=== PATIENT | male | born 1950 | race Caucasian/White ===

== ENCOUNTER 2016-11-03 00:39 | Day surgery (SDC) | payer MEDICARE, OTHER ==
[2016-11-03] VITALS (11 sets, daily range): BP systolic 106–129; BP diastolic 64–76; PULSE 51–63; RESP 13–21; O2SAT 93–98
[~2016-11-03] VITALS: Ht 182.9 cm; Wt 81.0 kg
[~2016-11-03 00:39] MED LIST: ASPI325T32 PO; CARV25TA2 PO; LIP40 PO; LOSA100T29 PO; OMEP20TA24 PO; SPIR25TA3 PO; [UNRECOGNIZED DRUG - CODE] PO
[2016-11-03] MEDS ORDERED: 0.9% Sodium Chloride 1,000 ML IV SCH (08:00)
[2016-11-03 08:20] LABS: BASOPHILS % (AUTO) 0.4 % (0-3); EOSINOPHILS % (AUTO) 4.3 % (0-5); MONOCYTES % (AUTO) 10.6 % (4-12); Mean Corpuscular Hemoglobin 29.9 pg (27.0-35.0); Mean Corpuscular Volume 89.1 fL (81-100); NEUTROPHILS % (AUTO) 62.7 % (40-74); Platelet Count 143 bil/L (150-400)
[2016-11-03 08:34] LABS: INR 0.98 ratio
[2016-11-03] MEDS ORDERED: Heparin 10,000 Unit/1,000 mL NS Premix IV ONE (09:24)
[2016-11-03] MEDS ORDERED: Heparin 1,000 Units/500 mL NS Premix IV ONE (09:24)
[2016-11-03] MEDS ORDERED: fentaNYL-PF 50 mCg/mL 2 mL Inj ONE (09:25)
[2016-11-03] MEDS ORDERED: Heparin 1,000 Unit/mL 10 mL Inj ONE (09:25)
[2016-11-03] MEDS ORDERED: Nitroglycerin 50,000 mcg/250 mL D5W Premix IV ONE (10:17)
--- NOTE | 2016-11-03 11:03 | NUR ---
Received Received from poultry farm laborer about 1054. VSS. Denies pain. Tele SB. Right groin without bleeding or hematoma. at bedside. Report given to Cally ISRAEL.
[2016-11-03] MEDS ORDERED: UBID100C25 PO (13:44)
[2016-11-03] MEDS ORDERED: CHOL500051 PO (13:44)
[2016-11-03] MEDS ORDERED: ASCO100089 PO (13:44)
--- NOTE | 2016-11-03 14:57 | NUR ---
Discharge Pt discharged to home with after stable recovery from diagnostic heart cath, VSS and WNL on RA, groin site soft non tender. Pt and stated verbal understanding of discharge instructions regarding use of home medications, signs of worsening condition and follow up appointments. Pt left with personal belongings, discharge paperwork, IV dc'd at approximately 1430. Pt and stated verbal understanding of preop instructions regarding prep for upcoming heart cath on monday 11/06.
--- NOTE | 2016-11-03 22:26 | CS94 ---
[address] [address] DIAGNOSTIC CARDIAC CATHETERIZATION PATIENT: PRESTON LOW : 1950 MR#: [id number] ADMIT: 11/03/2016 JOB ID: [id number] SERVICE DATE: 11/03/2016 CHIEF COMPLAINT: Abnormal stress test with dyspnea on exertion. PROCEDURES PERFORMED: 1. Left heart catheterization. 2. Selective coronary angiograms. 3. Right common femoral artery vascular access under ultrasound guidance. 4. Closure device via Perclose. METHOD: Following informed consent, patient was prepped and draped in usual sterile fashion. A 6-Gren[place] sheath was placed in the right common femoral artery. Sheath placement was confirmed via femoral angiogram. JL4 was used to engage left main. Right coronary artery engagement was difficult. I tried JR4 and it was unsuccessful. I tried 3D RC, AR Mod and these catheters were also unsuccessful. The vas catheter was AL1 but even that did not give me a selective engagement. The left ventricle was accessed via a JR4 catheter. End-diastolic pressure was recorded. The catheter was withdrawn into the aorta under continuous hemodynamic monitoring. There were no complications immediately postprocedure. CONTRAST USED: 130 cc. ESTIMATED BLOOD LOSS: 10 cc. FINDINGS: The right common femoral artery gives rise to SFA and profunda. The sheath enters the right common femoral artery at the lower third of the femoral head. There is no evidence of contrast extravasation or dissection. Coronary angiograms: Left main is a short vessel. It gives rise to LAD and the circumflex. Excellent blow back and no dampening on engagement. Left anterior descending demonstrates previously deployed stent with the stent inside of it due to previously noted in-stent restenosis. The distal portion of the stent appears to have intermediate disease. The LAD is a small caliber vessel and is diffusely diseased. The LAD gives rise to a medium-sized first diagonal branch, as well as multiple septal perforators. The disease distal to the previously deployed stent is located at the bifurcation of the first diagonal. It is best appreciated on [place] cranial view. The circumflex is a dominant vessel. It gives rise to a very small first obtuse marginal branch, a large bifurcating second obtuse marginal branch, a large bifurcating third obtuse marginal branch, a large fourth obtuse marginal branch and a large fifth obtuse marginal branch, which functions as a PDA. There is a 50% stenosis between the first and second obtuse marginal branches. There is 80% stenosis in the inferior limb of the large obtuse marginal branch. Right coronary artery is a diminutive nondominant vessel which gives rise to conus, RV branch. No obstructive lesions are identified. IMPRESSION: 1. 50% distal shoulder of the previously deployed stent in the mid left anterior descending stenosis with diffusely diseased left anterior descending distal to that lesion. 2. 50% proximal circumflex lesion at the alf point between the first obtuse marginal and second obtuse marginal branch. 3. 80% lesion in the inferior limb of the second obtuse marginal branch. PLAN: FFR of the LAD followed by intervention of the circumflex. Case is tentatively scheduled with on November 06. Thank you very much for the opportunity to evaluate this patient.
== END 2016-11-03 23:59 | disposition home or self-care (01) ==
LOC: SOUO 00:39
PROVIDERS: ATTEND Internal Medicine
DX: I25.10 Atherosclerotic heart disease of native coronary artery without angina pectoris (principal); T82.855A Stenosis of coronary artery stent, initial encounter; Y84.8 Other medical procedures as the cause of abnormal reaction of the patient, or of later complication, without mention of misadventure at the time of the procedure; I42.9 Cardiomyopathy, unspecified; I10 Essential (primary) hypertension; G47.33 Obstructive sleep apnea (adult) (pediatric); I25.2 Old myocardial infarction; I25.5 Ischemic cardiomyopathy; E78.5 Hyperlipidemia, unspecified; N40.0 Benign prostatic hyperplasia without lower urinary tract symptoms; Z79.82 Long term (current) use of aspirin
CPT/HCPCS: 36415; 80048; 85025; 85610; 93005; 93458; 99152; 99153; C1760; C1769; J1200; J1644; J2060; J2250; J3010; J7030; Q9967

== ENCOUNTER 2016-11-06 00:15 | Day surgery (SDC) | payer MEDICARE, OTHER ==
[2016-11-06] VITALS (14 sets, daily range): BP systolic 108–132; BP diastolic 64–75; PULSE 50–64; RESP 11–18; O2SAT 93–98
[~2016-11-06] VITALS: Ht 182.9 cm; Wt 80.9 kg
[~2016-11-06 00:15] MED LIST changes: +ASCO100089 PO; +CHOL500051 PO; +UBID100C25 PO
[2016-11-06] MEDS ORDERED: FURO40TA4 PO (13:42)
[2016-11-06] MEDS ORDERED: Heparin 10,000 Unit/1,000 mL NS Premix IV ONE ×2 (13:48→14:55)
[2016-11-06] MEDS ORDERED: Heparin 1,000 Units/500 mL NS Premix IV ONE (13:48)
[2016-11-06] MEDS ORDERED: Heparin 1,000 Unit/mL 10 mL Inj ONE (13:49)
[2016-11-06] MEDS ORDERED: Nitroglycerin 50,000 mcg/250 mL D5W Premix IV ONE (13:49)
--- NOTE | 2016-11-06 13:51 | NUR ---
Admit [facility] Admitted to [facility] 7 about 1330. VSS. Denies pain. IVs started. See EMR for further info and assessment. Procedure and recovery reviewed, pt. was here for same on Sunday. Awaiting label tacker.
[2016-11-06] MEDS ORDERED: 0.9% Sodium Chloride 250 ML ONE (14:13)
[2016-11-06] MEDS ORDERED: Adenosine 3 mg/mL 2 mL Inj ONE (14:13)
[2016-11-06] MEDS ORDERED: fentaNYL-PF 50 mCg/mL 2 mL Inj ONE (14:13)
[2016-11-06] MEDS ORDERED: Atropine 1 mg/10 mL (Code) Syringe ONE (14:35)
[2016-11-06] MEDS ORDERED: 0.9% Sodium Chloride 1,000 ML IV SCH (14:40)
--- NOTE | 2016-11-06 16:47 | NUR ---
Received Pt. taken to construction craft laborer just after 1400 and returned at 1540. VSS. Denies pain. Tele SB. Right groin without bleeding or hematoma. Peripheral pulses palp. IVF infusing per order. Continue to monitor per orders.
--- NOTE | 2016-11-06 19:43 | NUR ---
Transfer Assessment unchanged. Tolerating po. Voided per urinal. Report called to Chandni Cary RN about 1924. Transported to 2025 via bed with all belongings in no distress. at bedside. Bedside check done.
[2016-11-06] MEDS ORDERED: 0.9% Sodium Chloride 250 ML BOLUS IV PRN (20:00)
[2016-11-06] MEDS ORDERED: Ondansetron 2 mg/mL 2 mL Inj IVPUSH PRN (20:00)
[2016-11-06] MEDS ORDERED: 0.9% Sodium Chloride 400 ML (4 HRS) IV ONE (20:00)
--- NOTE | 2016-11-06 22:04 | DI95 ---
[address] [address] INTERVENTIONAL CARDIAC CATHETERIZATION PATIENT: PRESTON LOW : 1950 MR#: [id number] ADMIT: 11/06/2016 JOB ID: [id number] DATE OF SERVICE: 11/06/2016 PROCEDURE: 1. Plain balloon angioplasty of the circumflex. 2. Fractional flow reserve of the left anterior descending. INDICATION: Chest pain. PROCEDURAL DETAILS: The reader and the coders are referred to the procedure log. Briefly, we started the case with a 6-Libyan system using a Voda 3.5 guide. Subsequently this had to be changed to a CLS 7-Libyan 3.5 guide. The patient has a short left main and the circumflex takes off at an acute angle, so there was a bit of a difficulty in finding a guide that sat into the ostium, yet provided support and allowed the wires to go into the circumflex. Otherwise, the guide tended to deep seat into the LAD. ANGIOGRAPHIC FINDINGS: The circumflex in its proximal part has a 50% lesion, and this is the region where there is a takeoff of a moderate caliber obtuse marginal branch. This obtuse marginal branch has an ostial 80% and a mid segment 80% lesion. It is a 2 mm vessel. The LAD is calcified and in its mid segment at the trifurcation of two small diagonals, there appears to be a lesion which angiographically seems to be 60% to 70%. INTERVENTIONAL PROCEDURE: We initially took a Run-through wire and placed it into the first major obtuse marginal branch. Balloon angioplasty was then done with a 2.0 balloon. We got good results with about a 30% residual. We tried to stent this vessel, however, because of the acute takeoff between the left main and the circumflex, our stent would not travel. We then used a mich wire with a balanced heavy weight and a Whisper Extra-Support wire. The balanced heavy weight was placed in the first obtuse marginal branch. The ongoing circumflex received a Whisper Extra Support. The initial Run-through wire was placed in the LAD to protect the LAD as well. Despite two extra support wires, the stent would not make that acute turn and at that point we decided to not pursue stenting the obtuse marginal branch, especially because the OM also has an ostial lesion and I did not want to balloon the ostial lesion and not have the ability to stent it if needed, thereby jeopardizing the whole circumflex. In addition, I suspect that there is a strut from prior LAD stent that may be protruding into the ostium of the LAD, thereby making it difficult tho deliver a stent into the LCx, In order to evaluate the mid LAD, an FFR wire was placed in the LAD. The FFR was 0.85 thereby indicating that it can be deferred for now. In summary, this gentleman has calcific disease in his proximal circumflex as well as in his LAD. The mid-LAD lesion is borderline, he has mild disease in his left main as well. For now, I would recommend aggressive medical therapy. Should his disease progress, he might be a suitable candidate for bypass surgery. STEFANY
[2016-11-07 03:29] VITALS: BP 113/67; PULSE 61; RESP 18; O2SAT 93
--- NOTE | 2016-11-07 06:43 | NUR ---
S/P Heart Cath No c/o chest pain, Tele SB-SR with HR mostly in the 50s. Right groin site dressing CDI, no hematoma or active signs of bleeding. Groin site mildly tender with palpation. Pedal pulses are palpable. VS stable and afebrile. No c/o SOB, RA sats 93-94% all night, no s/sx of respiratory distress. Up with SBA to BR, gait steady.
[2016-11-07] MEDS ORDERED: Omega-3 Fatty Acids 1,000 mg Capsule PO SCH (08:30)
[2016-11-07] MEDS ORDERED: Ascorbic Acid 500 mg Tablet PO SCH (08:30)
[2016-11-07 09:15] VITALS: BP 116/63; PULSE 50; RESP 14; O2SAT 96
[2016-11-07 11:28] VITALS: PULSE 71
[2016-11-07 11:50] VITALS: BP 125/74; PULSE 55; RESP 20; O2SAT 95
--- NOTE | 2016-11-07 12:29 | PCM.DICHF ---
CHF Discharge Instructions Date of Service: Nov 07, 2016 Dates of Hospitalization Date of Hospital Admission 11/06/2016 Date of Discharge: Nov 07, 2016 Providers Admitting Physician: Primary Care Physician: Junie Dinero PA-C Attending Physician: Sourav Sutton MD Diagnosis at Time of Discharge Diagnosis at time of discharge CAD, Plain balloon angioplasty of the circumflex artery (11/06/2016) Problems: Labs Ejection Fraction Laboratory Tests Test Range/Units 11/07/16 09:26 Sodium Level 134-144 mEq/L 138 Potassium Level 3.5-5.2 mEq/L 4.0 Chloride Level 97-108 mEq/L 101 Carbon Dioxide Level 18-29 mmol/L 25 Blood Urea Nitrogen 8-27 mg/dL 11 Creatinine 0.76-1.27 mg/dL 0.95 Estimat Glomerular Filtration Rate >59 mL/min 84 Glucose Level 60-99 mg/dL 156 Calcium Level 8.5-10.1 mg/dL 9.6 Discharge Medications Other Medication Instructions You have received instructions on the medications your physician has prescribed at discharge. A list of these medications has been provided to you. Keep this and a list of all current medications with you. Keep the dates when you received the Flu and Pneumococcal (Pneumonia) Vaccines. Last known date of receiving Flu Vaccine fall 2015 Last known date of receiving Pneumococcal (Pneumonia) Vaccine Diet Diet Instructions CHF Low Salt diet ( 2 grams or less sodium/day) Choose foods and drinks with low or no salt. Remove salt shaker from the table. Read Nutritional Facts labels. Weight Monitoring 1. Weigh yourself every day at the same time and write it down. 2. Take your weight log to your doctor visits. 3. Call your doctor if you gain 3-5 pounds over 2-3 days. 4. Your weight today is 178.35 lbs. Additional Instructions Smoking--Tobacco Use If you smoke, you are strongly encouraged to stop. If you have recently quit smoking, CONGRATULATIONS. For further information to stop smoking or to remain smoke-free, Report or call your Doctor REPORT TO YOUR DOCTOR OR SEEK MEDICAL ATTENTION: *Shortness of breath or have more difficulty breathing. *Swelling of your feet, ankles, hands or abdomen. *Feeling tired with normal activity or experiencing dizziness or fainting. *Trouble sleeping or waking up feeling short of breath or coughing. *Chest pain or pressure. *Weight gain of 3-5 pounds over 2-3 days. *Inability to take medications or follow treatment plan Heart Attach warning signs HEART ATTACK WARNING SIGNS * Chest discomfort. *Discomfort or pain in one or both arms, back, neck, jaw or stomach. *Shortness of breath. *Breaking out in a cold sweat, nausea, or lightheadedness. If you're having heart attack warning signs: CALL . DON'T WAIT MORE THAN A FEW MINUTES - 5 MINUTES AT MOST - TO CALL . Chandan Chand PA-C Nov 07, 2016 12:29
--- NOTE | 2016-11-07 12:42 | PCM.DIMED ---
Discharge Instructions Date of Service Nov 07, 2016 Dates of Hospitalization 11/06/2016 Discharge Diagnosis Discharge Diagnosis CAD, Plain balloon angioplasty of the circumflex artery (11/06/2016) Medication Instructions Additional med instructions Please take all medications as prescribed. Please make sure that you take Clopidogrel (Plavix) 75 mg one tablet every day for one month. It is very important that you take this pill every day. If you have any questions, Please call cardiology office. Thank you Diet Discharge Diet: Low fat, Low Sodium, Heart Healthy Activity Discharge Activity: Other (please see below) Call your provider Call your provider for: Shortness of breath, Bleeding, Chest pain Patient Instructions Patient Instructions Do not drive a car for couple of days; you can shower starting from today; please do not soak in bath tub for one week; no heavy lifting, no more than 7- 10 pounds for 1 week; otherwise you can be physically active as tolerated Follow-up plan Check BMP in one week Provider: Iliana Mejia MD Follow-up in: 3 weeks Chandan Chand PA-C Nov 07, 2016 12:42
[2016-11-07] MEDS ORDERED: CLOP75TA28 PO (13:11)
--- NOTE | 2016-11-07 13:15 | PCM.DC.CAR ---
Discharge Summary Date of Service Nov 07, 2016 Date of Hospital Admission 11/06/2016 Date of Discharge: Nov 07, 2016 Providers: Admitting Physician: Primary Care Physician: Junie Dinero PA-C Attending Physician: Sourav Sutton MD Diagnosis at Time of Discharge CAD, s/p plain balloon angioplasty of the circumflex artery (11/06/2016), ischemic cardiomyopathy Problems: Brief History and Physical: This is a very pleasant 66 y/o gentleman with h/o CAD, s/p IN and PCIs in the past, ischemic cardiomyopathy with LV EF about 35% with mild MR, who recently had abnormal stress ECHO. The patient had elective cardiac cath done on 2016 Hospital Course: Coronary angiography showed that the patient had calcific disease in his proximal circumflex as well as in his LAD. The mid-LAD lesion was borderline, he had mild disease in his left main as well. The patient had plain balloon angioplasty of the circumflex. Dr. Sutton, who did the procedure, recommended aggressive medical therapy and also noted that should his disease progress, he might be a suitable candidate for bypass surgery. The patient tolerated procedure well. He ambulates freely. Denies having any chest discomfort or BECKER, does not have symptoms of nocturnal pulmonary congestion, denies having palpitations, or dizziness/lightheadedness. His right groin area (access site) is nontender with palpation, no bleeding, no hematoma, and no bruits with auscultation. BP controlled. He has normal kidney function and electrolytes. Per telemetry- sinus rhythm in 50s-60s bpm. I explained to the patient that he needs to take Plavix daily for one month per Dr. Diaz recommendation. Medications on discharge are below. Physical Exam before discharge: General: No active distress EENT: Mucous membranes moist, sclerae anicteric Neck: Supple, no thyromegaly Pulmo: Normal breathing sounds bilaterally, no crackles, no wheezing Cardio: RRR, no murmur appreciated, JVP is not elevated Abdomen: Nontender with palpation Vascular: No carotid bruits, peripheral pulses preserved Neuro: A&Ox3, no gross abnormalities Discharge Medications Ascorbic Acid (Vitamin C) 1,000 Mg Tab.chew 1,000 MG PO DAILY Aspirin (Aspirin) 325 Mg Tablet 325 MG PO DAILY Atorvastatin (Lipitor) 40 Mg Tablet 40 MG PO DAILY Carvedilol (Carvedilol) 25 Mg Tablet 25 MG PO BID Cholecalciferol (Vitamin D3) (Vitamin D) 5,000 Unit Capsule 5,000 UNIT PO DAILY Clopidogrel (Clopidogrel) 75 Mg Tablet 75 MG PO DAILY Furosemide (Furosemide) 40 Mg Tablet 40 MG PO DAILY Losartan Potassium (Losartan Potassium) 100 Mg Tablet 100 MG PO DAILY [place]-3/Dha/Epa/Fish Oil (Fish Oil 1,000 mg Softgel) 1,000 Mg (120 Mg-180 Mg) Capsule 1,000 MG PO DAILY Spironolactone (Spironolactone) 25 Mg Tablet 12.5 MG PO DAILY Ubidecarenone (Co Q-10) 100 Mg Capsule 100 MG PO DAILY Additional med instructions Please take all medications as prescribed. Please make sure that you take Clopidogrel (Plavix) 75 mg one tablet every day for one month. It is very important that you take this pill every day. If you have any questions, Please call cardiology office. Thank you Followup Plan Follow-up plan Check BMP in one week Discharge Activity: Other (please see below) Patient Instructions Do not drive a car for couple of days; you can shower starting from today; please do not soak in bath tub for one week; no heavy lifting, no more than 7- 10 pounds for 1 week; otherwise you can be physically active as tolerated Chandan Chand PA-C Nov 07, 2016 13:15
--- NOTE | 2016-11-07 13:39 | NUR ---
Discharge Patient denies pain/discomfort. A&Ox3. Groin site soft, non tender, no bruising or erythema noted. No s/sx bleeding. VSS. Discharge instructions and patient teaching on plavix printed and reviewed verbally with patient and his . IV's DC'd intact. Patient ambulated off unit with all personal belongings, accompanied by his and discharged home via personal vehicle.
== END 2016-11-07 13:30 | disposition home or self-care (01) ==
LOC: SOUO 00:15 → PCC 19:22 → SOUO 11-07 13:30
PROVIDERS: ATTEND Internal Medicine Cardiovascular Disease
DX: I25.10 Atherosclerotic heart disease of native coronary artery without angina pectoris (principal); I10 Essential (primary) hypertension; Z95.5 Presence of coronary angioplasty implant and graft; E78.5 Hyperlipidemia, unspecified; Z79.82 Long term (current) use of aspirin; I25.2 Old myocardial infarction; G47.33 Obstructive sleep apnea (adult) (pediatric); N40.1 Benign prostatic hyperplasia with lower urinary tract symptoms; G47.00 Insomnia, unspecified; I25.5 Ischemic cardiomyopathy
CPT/HCPCS: 36415; 80048; 92920; 93005; 93571; 99152; 99153; C1725; C1760; C1769; C1874; C1887; J0153; J1200; J1644; J2060; J2250; J3010; J7050; Q9967

== ENCOUNTER 2017-02-13 00:10 | Day surgery (SDC) | payer MEDICARE, OTHER ==
[~2017-02-13] VITALS: Ht 188 cm; Wt 82.5 kg
[2017-02-13] VITALS (14 sets, daily range): BP systolic 109–131; BP diastolic 62–79; PULSE 47–63; RESP 11–18; O2SAT 92–98
[~2017-02-13 00:10] MED LIST changes: -CHOL500051 PO; +CLOP75TA28 PO; +FURO40TA4 PO; -OMEP20TA24 PO; -UBID100C25 PO
[2017-02-13 11:19] LABS: BASOPHILS % (AUTO) 0.3 % (0-3); EOSINOPHILS % (AUTO) 5.5 % (0-5); MONOCYTES % (AUTO) 9.8 % (4-12); Mean Corpuscular Hemoglobin 29.9 pg (27.0-35.0); Mean Corpuscular Volume 86.7 fL (81-100); NEUTROPHILS % (AUTO) 57.9 % (40-74); Platelet Count 131 bil/L (150-400)
[2017-02-13] MEDS ORDERED: CHOL500051 PO (11:27)
--- NOTE | 2017-02-13 11:30 | NUR ---
Admitted for an ICD for a low EF of 30 - DX with cardiomyopathy. Pt and understand plan of care.
[2017-02-13] MEDS ORDERED: Vancomycin 1,000mg/200 mL NS IV ONE (11:57)
[2017-02-13] MEDS ORDERED: Bupivacaine-MPF 0.5% 30 mL Inj ONE (11:59)
[2017-02-13] MEDS ORDERED: 0.9% Sodium Chloride 250 ML ONE (11:59)
[2017-02-13] MEDS ORDERED: Heparin 10,000 Unit/1,000 mL NS Premix IV ONE (11:59)
[2017-02-13] MEDS ORDERED: fentaNYL-PF 50 mCg/mL 2 mL Inj ONE ×2 (12:20→12:41)
[2017-02-13] MEDS ORDERED: Water for Injection 50 ML IV ONE (12:26)
[2017-02-13] MEDS ORDERED: Vancomycin 1,000 mg Inj ONE (12:26)
[2017-02-13] MEDS ORDERED: Ondansetron 2 mg/mL 2 mL Inj IVPUSH PRN (13:25)
--- NOTE | 2017-02-13 14:00 | NUR ---
Received from greenskeeper laborer - Left upper chest insertion site for pacer/ICD is firm, but per greenskeeper laborer - firmness area is his anatomy not a hematoma. Noted intermittent atrial lead capture from pacer.
--- NOTE | 2017-02-13 14:43 | OP ---
[address] [address] OPERATIVE REPORT PATIENT: PRESTON LOW : 1950 MR#: [id number] ADMIT: 02/13/2017 JOB ID: [id number] DATE OF SURGERY: 02/13/2017 PREOPERATIVE DIAGNOSIS(ES): 1. Severe ischemic cardiomyopathy with ejection fraction 30%-35%. 2. Coronary artery disease, status post LAD infarct. 3. Sick sinus syndrome. 4. Intact conduction. 5. [place] Heart [employer] class II heart failure symptoms. POSTOPERATIVE DIAGNOSIS(ES): 1. Severe ischemic cardiomyopathy with ejection fraction 30%-35%. 2. Coronary artery disease, status post LAD infarct. 3. Sick sinus syndrome. 4. Intact conduction. 5. [place] Heart [employer] class II heart failure symptoms. PROCEDURES PERFORMED: 1. Dual-chamber ICD implantation. 2. Left upper extremity venogram. 3. Fluoroscopy. SURGEON: Pepe Bailey M.D., electrophysiology attending OIL DIPPER: Denny Long. IMPLANTED DEVICES: 1. [employer] pulse generator, model [id number], serial #[id number]. 2. Right atrial lead [employer] 2088 TC, 52 cm, serial #[id number]. 3. RV lead [employer] 7122 Q, 65 cm, serial # [id number]. ANESTHESIA: Bolus dosing of Versed and fentanyl were utilized to an appropriate level of sedation. INDICATION: The patient is a very pleasant 66-year-old man with coronary artery disease, previous anterior OK and consequent severe ischemic cardiomyopathy, sick sinus syndrome. After discussion of risks and benefits of dual-chamber ICD implantation, he opted to proceed. PROCEDURAL DESCRIPTION: Following informed signed consent, the patient was taken to the EP laboratory in a fasting nonsedated state where he was prepped and draped in the usual sterile fashion. The left infraclavicular region was infiltrated with 40 cc of a 50/50 mixture of bupivacaine and lidocaine. Once adequate anesthesia was achieved, a 3 cm transverse incision was performed in the usual fashion to the pectoralis fascia. A pocket was fashioned using a combination of electrocautery and blunt dissection. Attempts to access the left with a micropuncture needle were unsuccessful. A left upper extremity venogram was performed, and under venographic guidance, the vessel was cannulated twice with a micropuncture needle to deploy two 0.035, 3 mm J guidewires. Over the first of these, a 7-[place] tear-away sheath was advanced. The was removed. The active fixation ICD lead was advanced to the RV outflow tract and ultimately the RV apex. The lead was affixed in position using associated active fixation screw. It was connected to the external analyzer. sensed R waves, impedance, capture. It was checked to 10 V and there was no evidence of diaphragmatic stimulation. Attention was now paid to the atrial lead. Over the previously deployed J guidewire, a 6-[place] tear-away sheath was advanced. Once the guidewire was removed, an active fixation lead was advanced to the right atrial appendage. It was affixed in position using the associated active fixation screw. The lead was connected to the external analyzer and demonstrated appropriately sensed P waves, impedance, capture and threshold. It was checked to 10 V and there was no evidence of diaphragmatic stimulation. Once the position and redundancy of both leads had been confirmed in multiple fluoroscopic views, the leads were anchored to the prepectoralis fascia using their associated anchoring sleeves and two Ethibond sutures. The pocket was then copiously irrigated with antibiotic solution. The leads were connected to a generator. The pocket was affixed to the floor of the pocket using 1-0 Ti-Cron suture. The incision was then closed with running layers of absorbable suture. The wound was dressed with skin adhesive and a small dressing. At the end of the procedure, the needle, sponge, and instrument counts were correct. COMPLICATIONS: None. ESTIMATED BLOOD LOSS: Negligible. DEVICE MEASURED DATA: 1. Right atrial lead, 3.9 mV, 540 ohms, 0.5 V at 0.5 msec. 2. RV lead, 9.8 mV, 560 ohms, 0.5 V at 0.5 msec. FINAL PROGRAM PARAMETERS: 1. DDDR 60-130 beats per minute with VIP on. 2. VF zone at 187 beats per minute with ATP during charge followed by shock. 3. VT 2 zone at 171 beats per minute with six rounds of ATP followed by shocks. 4. VT monitor zone 150 beats per minute. IMPRESSION: Successful dual-chamber ICD implantation. PLAN: 1. Stat portable chest x-ray. 2. PA and lateral chest x-ray in the morning. 3. Device interrogation. 4. IV Ancef x7 days. 5. Wound check in one week. ATTENDING STATEMENT: Pepe Bailey M.D., electrophysiology attending was present for and supervised/performed all aspects of this procedure.
[2017-02-13] MEDS: HYDROcodone-APAP 5-325 mg Tablet PO PRN ×3 (15:01→23:54)
--- NOTE | 2017-02-13 16:06 | DRSVH ---
PROCEDURE: X-RAY CHEST ONE VIEW, PORTABLE ([id number]) INDICATIONS: For new leads placed TECHNIQUE: One view of the chest was acquired. COMPARISON: [facility], XA, LEFT HEART ARTERY/VENTR ANGIO, 11/03/2016, 10:07. FINDINGS: Surgical changes and devices: A pacer device is seen. the leads are seen in there expected locations. The Lungs and pleura: No pleural effusions or pneumothorax. Lungs are clear. Mediastinum: Mediastinal contours appear normal. Heart size is normal. Bones and chest wall: No suspicious bony lesions. Overlying soft tissues appear unremarkable. IMPRESSION: A left-sided dual-lead pacer is seen, which has an unremarkable appearance. Dictated by: Maxx Kennedy M.D. on 02/13/2017 at 16:04 Approved by: Maxx Kennedy M.D. on 02/13/2017 at 16:04
--- NOTE | 2017-02-13 16:31 | NUR ---
Transferred up to 3024 by wheelchair. Sling placed on arm prior to transfer from bed to wheelchair. Ache of 5/10 improved to 0/10 prior to transfer to room. Report given to LINDY Ceron for room 3024.
[2017-02-13] MEDS: 0.9% Sodium Chloride 1,000 ML IV SCH ×2 (16:54→23:25)
[2017-02-13] MEDS: CeFAZolin Inj 1 GM in IV Premix 1 EACH IV SCH ×2 (16:57→23:54)
--- NOTE | 2017-02-13 17:18 | NUR ---
Transfer from [facility] Patient is alert and orientedX3. Able to make needs known. Stable vital signs. per patient request called Dr. Pepe Bailey for patient wants to start Lasix and Asprin tomorrow morning and new verbal orders recieved Ok to start those 2 meds tomorrow per patient request. pharmacy aware. Denies pain to left chest pace maker site. dressing is clean dry and intact. Started on IV ABO Ancef as ordered. IV fluids as ordered. Denies cardiac or respiratory discomfort. No reports of nausea or vomiting per patient. per Tele Vpaced 60. per report from [facility] ICD dual chamber atrial pace maker in upper left chest. continue to monitor dressing site, sign and symptoms for infection, pain, and safety.
[2017-02-13] MEDS ORDERED: Omega-3 Fatty Acids 1,000 mg Capsule PO SCH (18:00)
[2017-02-14 00:17] VITALS: PULSE 60
--- NOTE | 2017-02-14 03:14 | NUR ---
OPERATIVE SITE At worst, pt c/o 3/10 pain in either l. chest at operative site or in l. shoulder/arm area. Pt states 2 [place] are effective for this. Per report from previous shift in congruence with ADRIÁN RN, pt's anatomy in upper left chest is baseline firm. Pt stated he was unaware of this, but not concerned. No signs of hematoma or complications, minimal drainage in dressing. Will pass on to bring up in rounds.
[2017-02-14 06:36] VITALS: BP 135/79; PULSE 60; RESP 18; O2SAT 93
[2017-02-14] MEDS ORDERED: Ascorbic Acid 500 mg Tablet PO SCH (08:30)
[2017-02-14 08:53] VITALS: BP 118/70; PULSE 60; RESP 18; O2SAT 93
[2017-02-14] MEDS: 0.9% Sodium Chloride 1,000 ML IV SCH (09:01)
--- NOTE | 2017-02-14 09:26 | PCM.DIMED ---
Discharge Instructions Date of Service Feb 14, 2017 Dates of Hospitalization Discharge Diagnosis Discharge Diagnosis Coronary Artery Disease Ischemic Cardiomyopathy Diet Discharge Diet: Low fat, Low Sodium, Heart Healthy Activity Discharge Activity: Other (Keep incision dry one day. Do not extend left elbow high above shoulder for one month. Do not lift, push or pull more than 10 lbs with the left arm for one month.) Call your provider Call your provider for: Fever or Chills, Bleeding, Excessive diarrhea Patient Instructions Follow-up in: 1 week Mid-level Provider (F9): Gio Chan PA-C Follow-up with Mid-level in: 6 weeks Gio Chan PA-C Feb 14, 2017 09:26
[2017-02-14] MEDS ORDERED: CEPH500C PO (10:07)
[2017-02-14 10:26] VITALS: PULSE 67
--- NOTE | 2017-02-14 10:43 | DRSVH ---
PROCEDURE: X-RAY CHEST, TWO VIEWS ([id number]) INDICATIONS: For new lead placement TECHNIQUE: 2 views of the chest were acquired. COMPARISON: [facility], CR, XR CHEST 1VW (PORTABLE), 02/13/2017, 14:15. FINDINGS: Surgical changes and devices: Stable position of left chest AICD. Lungs and pleura: No pleural effusions or pneumothorax. Lungs are clear. Mediastinum: Mediastinal contours are normal. Heart size is normal. Bones and chest wall: No suspicious bony abnormalities. Soft tissues appear unremarkable. IMPRESSION: Stable exam post pacer placement. Dictated by: Zane Mosquera RRA Interpreted: Vini Sood MD on 02/14/2017 at 10:27 Approved by: Vini Sood M.D. on 02/14/2017 at 10:41
--- NOTE | 2017-02-14 11:11 | NUR ---
DISCHARGE Patient discharged at 1100, left with who will drive him home. Patient denies pain, nausea, and shortness of breath. IV catheter removed intact, medications reviewed, new Rx provided, and patient verbalized understanding. Care notes on pacemaker given and teaching done on care and post-op instructions. Follow up appointments, times and dates reviewed.
--- NOTE | 2017-02-14 11:45 | DIS ---
[address] [address] DISCHARGE SUMMARY PATIENT: PRESTON ARELLANO : 1950 MR#: [id number] ADMIT: 02/13/2017 JOB ID: [id number] DIS: DATE OF ADMISSION: 02/13/2017 DATE OF DISCHARGE: 02/14/2017 REASON FOR ADMISSION: Defibrillator implant. CHIEF COMPLAINT: Fatigue and exertional dyspnea. 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 He has a severe ischemic cardiomyopathy with an LV ejection fraction of 30-35%. He was referred to Dr. Bailey for consideration of a prophylactic ICD implant and wished to go forward with that. He has sinus bradycardia, but intact conduction. COURSE IN HOSPITAL: The patient was admitted to the [facility] and taken to the builder's labourer, where he received the dual-chamber ICD system without incident. He was taken back to the [facility] for recovery from sedation and then transferred up to the third floor in PC unit for overnight observation and telemetry monitoring. He did well overnight and in the morning was ambulatory without difficulty and was not having significant pain. The ICD site shows a moderate hematoma, but no bleeding to the surface. The area is somewhat tender to him, but it does not appear to be continuing to enlarge. Device evaluation shows excellent capture and sensing thresholds for both leads. Chest x-ray shows good lead positions and no pneumothorax. He feels well for discharge home and has no complaints of dyspnea, fatigue, chest pain, or lightheadedness. DISPOSITION: The patient was discharged home in good condition with a followup appointment at the [facility] Cardiology office in one month. He was asked not to extend his left elbow above his shoulder for one month and not to lift, push, or pull more than 10 pounds with the left arm for one month. He will take medications as prescribed and follow a heart healthy diet. MEDICATIONS: 1. Cephalexin 500 mg b.i.d. for one week. 2. Vitamin C 1000 mg daily. 3. Aspirin 325 mg daily. 4. Atorvastatin 40 mg daily. 5. Carvedilol 25 mg b.i.d. 6. Vitamin D3 5000 units daily. 7. Furosemide 40 mg daily. 8. Losartan 100 mg daily. 9. Fromberg-3 fish oil gel caps 1000 mg daily. 10. Spironolactone 12.5 mg daily. FINAL DIAGNOSES: 1. Coronary artery disease. 2. Ischemic cardiomyopathy.
== END 2017-02-14 11:05 | disposition home or self-care (01) ==
LOC: SOUO 00:10 → MPC 16:06 → SOUO 02-14 11:05
PROVIDERS: ATTEND Internal Medicine Cardiovascular Disease
DX: I25.5 Ischemic cardiomyopathy (principal); Z00.6 Encounter for examination for normal comparison and control in clinical research program; I25.10 Atherosclerotic heart disease of native coronary artery without angina pectoris; E78.5 Hyperlipidemia, unspecified; N40.0 Benign prostatic hyperplasia without lower urinary tract symptoms; Z79.82 Long term (current) use of aspirin; I49.5 Sick sinus syndrome; I25.2 Old myocardial infarction
CPT/HCPCS: 33249; 36415; 71010; 71020; 80048; 85025; 85610; 93005; 99152; 99153; C1721; C1769; C1777; C1892; C1898; J0131; J0690; J1644; J2250; J3010; J3370; J7030; J7050